=== PATIENT | female | born 1985 | race Caucasian/White ===

== ENCOUNTER 2016-05-14 06:23 | Day surgery (SDC) | payer OTHER ==
[~2016-05-14] VITALS: Ht 162.6 cm; Wt 75.7 kg
[~2016-05-14 06:23] MED LIST: FERR325E14 PO; METF500T PO; PREN-385 PO
[2016-05-14] MEDS ORDERED: SYN.075 PO (07:17)
[2016-05-14] MEDS ORDERED: ONDANSETRON 4 MG/2 ML VIAL IVP PRN ×2 (08:15→09:20)
[2016-05-14] MEDS ORDERED: ACETAMINOPHEN/CODEINE 300/30MG 1 TAB PO PRN (08:15)
[2016-05-14] MEDS ORDERED: IBUPROFEN 800 MG TAB PO PRN (08:15)
[2016-05-14] MEDS ORDERED: MORPHINE SULFATE 4 MG/ML SYR IM/IVP PRN (08:15)
[2016-05-14] MEDS ORDERED: BUPIVACAINE-MPF/EPI 0.5% 30 ML VIAL INJ ONE (08:20)
[2016-05-14] MEDS ORDERED: ONDANSETRON 4 MG/2 ML VIAL ONE (08:25)
[2016-05-14] MEDS ORDERED: DEXAMETHASONE 4 MG/ML VIAL ONE (08:25)
[2016-05-14] MEDS ORDERED: SUCCINYLCHOLINE CHLORIDE 200 MG/10 ML VIAL IVP ONE (08:25)
[2016-05-14] MEDS ORDERED: PROPOFOL 200 MG/20 ML VIAL IV ONE (08:25)
[2016-05-14] MEDS ORDERED: SEVOFLURANE 250 ML BTL INH ONE (08:25)
[2016-05-14] MEDS ORDERED: MIDAZOLAM 2 MG/2 ML VIAL ONE (08:31)
[2016-05-14] MEDS ORDERED: fentaNYL 0.05 MG/ML VIAL ONE (08:31)
[2016-05-14] MEDS ORDERED: MEPERIDINE 50 MG/ML SYR ONE (08:32)
[2016-05-14] MEDS ORDERED: LACTATED RINGERS 1,000 ML IV SCH (09:19)
[2016-05-14] MEDS ORDERED: HYDROmorphone 1 MG/ML AMP IVP PRN (09:20)
[2016-05-14] MEDS ORDERED: diphenhydrAMINE 50 MG/ML VIAL IVP PRN ×2 (09:20→09:40)
[2016-05-14] MEDS ORDERED: MEPERIDINE 25 MG/ML SYR IVP PRN ×2 (09:20→09:39)
[2016-05-14] MEDS ORDERED: MEPERIDINE 25 MG/ML SYR ONE (09:46)
== END 2016-05-14 12:40 | disposition home or self-care (01) ==
LOC: MMU 06:23 → MDS 06:23
PROVIDERS: ATTEND Obstetrics & Gynecology
DX: Z30.2 Encounter for sterilization (principal); K21.9 Gastro-esophageal reflux disease without esophagitis
CPT/HCPCS: 58600; J0690; J2175; J2250; J2270; J2405; J3010; J3490; J7060; J7120; J0330; J1100; J2704